=== PATIENT | female | born 1970 | race Caucasian/White ===

== ENCOUNTER 2018-02-03 09:45 | Emergency (ER) | payer OTHER ==
[~2018-02-03] VITALS: Ht 172.7 cm; Wt 64.4 kg
--- NOTE | 2018-02-03 10:50 | ED PSYCHIATRIC COMPLAINT ---
See Addendum History of Present Illness General Chief Complaint: Psychiatric Related Complaint Stated Complaint: S/P FALL HX MS AND ETOH HEAD INJURY Source: patient, old records, friend Exam Limitations: clinical condition, intoxication Vital Signs & Intake/Output Vital Signs & Intake/Output Vital Signs Date Time Temp Pulse Resp B/P B/P Pulse O2 O2 Flow FiO2 Mean Ox Delivery Rate 02/03 2027 99.1 87 18 133/72 02/03 2010 99.1 87 18 133/72 100 Room Air 02/03 1711 98.3 96 20 135/84 100 Room Air 02/03 1413 Room Air 02/03 0949 98.6 82 18 136/87 98 Room Air Allergies Coded Allergies: No Known Allergies (04/12/17) Reconcile Medications Cholecalciferol (Vitamin D3) (Vitamin D) (Unknown Strength) CAPSULE (Unknown Dose) PO DAILY SUPPLEMENT (Reported) Fentanyl 25 MCG/HOUR PATCH.TD72 1 PAT TOP Q3D PAIN (Reported) Ferrous Sulfate (Slow Release Iron) (Unknown Strength) TABLET.ER (Unknown Dose ) PO BID SUPPLEMENT (Reported) Imipramine Pamoate 75 MG CAPSULE 1 TAB PO QHS MS-BLADDER/BOWEL (Reported) Turon Carbonate (Turon Carbonate ER) 450 MG TABLET.ER 1 TAB PO BID MENTAL HEALTH (Reported) Lubiprostone (Amitiza) 8 MCG CAPSULE 1 CAP PO BID GI (Reported) Methylphenidate HCl (Methylphenidate ER) 20 MG TABLET.ER 1 TAB PO QAM ADHD ( Reported) Methylphenidate HCl 20 MG TABLET 1 TAB PO 1600 ADHD (Reported) Oxycodone HCl 5 MG TABLET 1 TAB PO TID PAIN (Reported) Pantoprazole Sodium 40 MG TABLET.DR 1 TAB PO DAILY GI (Reported) Quetiapine Fumarate 50 MG TABLET 1 TAB PO BID PRN MENTAL HEALTH (Reported) Quetiapine Fumarate (Seroquel XR) 300 MG TAB.ER.24H 1 TAB PO QPM MENTAL HEALTH /SLEEP (Reported) Ranitidine (Ranitidine HCl) 150 MG TABLET 1 TAB PO BID GI (Reported) Rituximab (Rituxan) (Unknown Strength) VIAL (Unknown Dose) IV AD MS (Reported ) Solifenacin Succinate (Vesicare) 10 MG TABLET 1 TAB PO QAM BLADDER (Reported) Triage Note: 47 YO FEMALE TO TRIAGE WITH FRIEND. PT HX OF MS AND ETOH USE. PT ARRIVES INTOXICATED, PT WALKED INTO WAITING AREA WITH FRIEND AND SAT DOWN ON FLOOR, PT DID NOT FALL, PT ASSISTED INTO WHEELCHAIR BY 2 STAFF MEMEBRS. PT NTOED WITH LARGE HEMATOMA TO L SIDE OF FOREHEAD, PER PT AND FRIENED, PT HAS BEEN FALLING FREQUENTLY D/T THE MS AND THE ALCOHOL USE. PT YELLING "F THIS I UST WANT TO , TODAY, PLEASE JUST KILL ME" PT ALERT, STRONG SMELL OF ETOH NOTED. PER FIREND, PT HIT HER HEAD ON THE COFFEE TABLE LAST PM, NO LOC. Triage Nurses Notes Reviewed? yes Onset: Last week Duration: day(s):, continues in ED, getting worse Timing: recent history Severity: severe Associated Symptoms: anxiety, impaired concentration, suicidal ideation LMP (ages 10-50): unknown : No Patient currently breastfeeds: No HPI: Over the last day prior to admission patient is had increasing depression alcohol abuse and expressing suicidality without a plan. 1 day prior to admission patient was drunk lost her balance and struck the left side of her face on a coffee table without loss of consciousness. There is no fever chills nausea vomiting diarrhea abdominal pain chest pain shortness breath headache dysuria bleeding homicidal ideation hallucination. (Wilberto Parham MD) Past History Travel History Traveled to [place] past 21 day No Medical History Any Pertinent Medical History? 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 No (Wilberto Parham MD) Review of Systems Review of Systems Constitutional: Reports: no symptoms. EENTM: Reports: no symptoms. Respiratory: Reports: no symptoms. Cardiovascular: Reports: no symptoms. GI: Reports: no symptoms. Genitourinary: Reports: no symptoms. Musculoskeletal: Reports: no symptoms. Skin: Reports: see HPI. Neurological/Psychological: Reports: see HPI, anxiety, confusion, depressed. Hematologic/Endocrine: Reports: no symptoms. Immunologic/Allergic: Reports: no symptoms. All Other Systems: Reviewed and Negative (Wilberto Parham MD) Physical Exam Physical Exam General Appearance: well developed/nourished, alert, awake, anxious, moderate distress Head: contusions, ecchymosis Eyes: Bilateral: normal appearance, PERRL, EOMI. Ears, Nose, Throat: normal pharynx, normal ENT inspection, hearing grossly normal Neck: normal inspection, supple, full range of motion Respiratory: normal breath sounds, chest non-tender, no respiratory distress, quiet respiration, lungs clear Cardiovascular: regular rate/rhythm, normal peripheral pulses, norml femoral pulses equa Gastrointestinal: normal bowel sounds, soft, non-tender, no organomegaly Extremities: normal range of motion, no ligament instability Neurological/Psychiatric: no motor/sensory deficits, awake, agitated, alert, anxious, crm coordinator II-XII nml as tested, depressed affect Appearance/Memory/Insight: disheveled, impaired insight Behavoir/Eye Contact/Speech: belligerent, compulsive, increased rate of speech Thoughts/Hallucinations: no apparent hallucination Skin: intact, normal color, warm/dry SAD PERSONS SAD PERSONS Response Value Age <19 or >45 years? yes 1 Depression/Hopelessness? yes 2 Previous Attempts/Psych Care yes 1 Excessive Ethanol/Drug Use? yes 1 Rational Thinking Loss? yes 2 Single//? yes 1 Social Support? has support 0 Total 8 SAD PERSONS Done? yes (Dione CASTILLO,Wilberto) Progress Differential Diagnosis: drug intoxication, drug overdose, drug withdrawal, electrolyte abnormality, hypoglycemia Plan of Care: Orders Procedure Date/time Status Regular Diet 02/03 L Active Pathway - chart 02/03 2122 Active CIWA 02/03 2122 Active CIWA 02/03 202 Active Continuous Observation Monitor 02/03 1825 Active Add-on Test (ER Only) 02/03 1704 Active Continuous Observation Monitor 02/03 1425 Active LITHIUM 02/03 1111 Complete Continuous Observation Monitor 02/03 1029 Active URINE 02/03 1029 Complete URINE DRUG SCREEN FOR ER ONLY 02/03 1029 Complete ETHANOL 02/03 1029 Complete COMPREHENSIVE METABOLIC PANEL 02/03 1029 Complete CBC WITHOUT DIFFERENTIAL 02/03 1029 Complete ED CRISIS PSYCH CONSULT 02/03 1029 Active Current Medications Sig/Sean Start time Last Medication Dose Stop Time Status Admin Quetiapine Fumarate 50 MG DAILY 02/04 0900 UNVr (SEROquel) Lorazepam 2 MG ONCE ONE 02/03 2130 UNVr (Ativan) 02/03 2131 Lorazepam 2 MG Q2P PRN 02/03 2130 UNVr (Ativan) Lorazepam 1 MG Q2P PRN 02/03 2130 UNVr (Ativan) Oxycodone HCl 5 MG TID 02/03 2100 AC 02/03 (Roxicodone) 2025 Quetiapine Fumarate 300 MG QPM 02/03 2100 UNVr 02/03 (Seroquel) 175 Turon Carbonate 450 MG BID 02/03 174 UNVr 02/03 (Eskalith Cr) 175 Fentanyl Citrate 25 MCG Q72H 02/03 161 UNVr 02/03 (Duragesic) 174 Quetiapine Fumarate 50 MG Q12P PRN 02/03 161 AC (SEROquel) Imipramine HCl 75 MG DAILY 02/03 160 UNVr 02/03 (Tofranil 25 MG 1710 Tablet) Famotidine 20 MG DAILY 02/03 1608 UNVr 02/03 (Pepcid) 1710 Lubiprostone 8 MCG DAILY 02/03 1607 UNVr 02/03 (Amitiza) 1709 Methylphenidate HCl 20 MG DAILY 02/03 1607 UNVr 02/03 (Ritalin) 1746 Oxybutynin Chloride 10 MG DAILY 02/03 1607 UNVr 02/03 (Ditropan) 1709 Nicotine 21 MG DAILY 02/03 1556 UNVr 02/03 (Nicoderm) 1709 Laboratory Tests 02/03/18 1111: Anion Gap 13, Estimated GFR > 60, BUN/Creatinine Ratio 13.3, Glucose 106 H, Calcium 9.2, Total Bilirubin 0.5, AST 24, ALT 22, Alkaline Phosphatase 84, Total Protein 6.9, Albumin 4.2, Globulin 2.7, Albumin/Globulin Ratio 1.6, CBC w Diff NO MAN DIFF REQ, RBC 4.59, MCV 92.5, MCH 30.8, MCHC 33.3, RDW 15.0 H, MPV 6.4 L, Gran % 67.1, Lymphocytes % 23.8, Monocytes % 7.1, Eosinophils % 1.5, Basophils % 0.5, Absolute Granulocytes 4.8, Absolute Lymphocytes 1.7, Absolute Monocytes 0.5, Absolute Eosinophils 0.1, Absolute Basophils 0, Turon 0.3 L, Serum Alcohol 230.0 02/03/18 0925: Urine Opiates Screen < 100, Methadone Screen 42, Barbiturate Screen < 60, Ur Phencyclidine Scrn < 6.00, Amphetamines Screen < 100, U Benzodiazepines Scrn < 85, Urine Cocaine Screen < 50, Urine Cannabis Screen < 5.00, Urine Test NEGATIVE Diagnostic Imaging: Viewed by Me: CT Scan. Discussed w/RAD: CT Scan. Radiology Impression: There is asymmetric subcutaneous swelling over the left zygomatic arch. No acute facial fracture. No acute intracranial hemorrhage. Hand-Off Endorsed To: Roddy CASTILLO,Arcenio Dawn Endorsed Time: 1899 Pending: consult (Wilberto Parham MD) Departure Departure Disposition: STILL A PATIENT Condition: Stable Clinical Impression Primary Impression: Depression with suicidal ideation Secondary Impressions: Alcohol intoxication delirium, Contusion, cheek Referrals: Viri Bryan MD (PCP/Family) Departure Forms: Customer Survey General Discharge Information (Wilberto Parham MD) Departure Comments 02/03/18, 21:00... pt placed on PEC by psychiatrist... ciwa score elevated... will cover with ativan, follow ciwa, crises to evaluate in AM. pt to be signed out to dr. parham, 02/04/18, 7am. (Roddy CASTILLO,Arcenio Dawn)
[2018-02-03 11:19] LABS: ABSOLUTE BASOPHIL COUNT 0 /CUMM (0.0-0.2); ABSOLUTE EOSINOPHIL COUNT 0.1 /CUMM (0.0-0.7); ABSOLUTE GRANULOCYTE CT 4.8 /CUMM (1.4-6.5); ABSOLUTE LYMPH COUNT 1.7 /CUMM (1.2-3.4); ABSOLUTE MONOCYTE COUNT 0.5 /CUMM (0.10-0.60); BASOPHIL % 0.5 % (0.0-2.0); EOSINOPHIL % 1.5 % (0-5); GRANULOCYTE % 67.1 % (42.2-75.2); HEMATOCRIT 42.5 % (37-47); MEAN CORPUSCULAR HGB 30.8 PG (27.0-31.0); MEAN CORPUSCULAR HGB CONC 33.3 G/DL (33.0-37.0); MEAN CORPUSCULAR VOLUME 92.5 FL (81.0-99.0); MEAN PLATELET VOLUME 6.4 FL (7.4-10.4); PLATELET COUNT 404 /CUMM (130-400); RED BLOOD CELL CT 4.59 /CUMM (4.20-5.40); WHITE BLOOD CELL COUNT 7.2 /CUMM (4.8-10.8)
--- NOTE | 2018-02-03 11:30 | CT SCAN REPORT ---
EXAMINATION: CT HEAD AND FACE. CLINICAL INFORMATION: Ecchymosis of the left zygoma status post fall. COMPARISON: Brain MRI 11/28/2017. TECHNIQUE: Screed Operator images were obtained. CT acquisition of the head and face was performed without intravenous administration of contrast. Data was reformatted into multiplanar images at the acquisition workstation. DLP: 1359.24 mGy-cm. FINDINGS: There is asymmetric subcutaneous soft tissue swelling over the zygomatic arch. No evidence of an acute facial fracture. Specifically the nasal bones, zygomatic arches, and pterygoid processes are intact. The mandible is intact and the temporomandibular joints are symmetric. Globes are symmetric. There is no retrobulbar mass or hematoma. Lamina papyracea and orbital floors are intact. The right maxillary sinus is nearly completely opacified. The remainder of the paranasal sinuses are well aerated. Major paranasal sinus drainage pathways are patent. The nasal septum deviates the left and there is a leftward projecting nasal septal spur the contacts the medial surface of left inferior nasal turbinate. There is no acute intracranial hemorrhage or abnormal extra-axial collection. No intracranial mass effect or midline shift. Lateral and third ventricles are normal. No hydrocephalus. A few scattered nonspecific foci of hypoattenuation are visualized within the periventricular white matter which coincide with chronic changes of multiple sclerosis better demonstrated on the brain MRI from 11/28/2017. Parr-white matter differentiation is otherwise grossly preserved and there is no evidence of acute territorial infarct. There is no mastoid or middle ear effusion. IMPRESSION: There is asymmetric subcutaneous swelling over the left zygomatic arch. No acute facial fracture. No acute intracranial hemorrhage.
[2018-02-03] MEDS ORDERED: AMITIZA8 MC1 PO (16:12)
[2018-02-03] MEDS ORDERED: LITHIUM CARBON450 M1 PO (16:12)
[2018-02-03] MEDS ORDERED: METHYLPHENIDATE20 M7 PO (16:13)
[2018-02-03] MEDS ORDERED: FENTANYL1 EAC2 TOP (16:13)
[2018-02-03] MEDS ORDERED: METHYLPHENIDATE20 M4 PO (16:13)
[2018-02-03] MEDS ORDERED: VESICARE10 MG PO (16:14)
[2018-02-03] MEDS ORDERED: IMIPRAMINE PAMO75 MG PO (16:15)
[2018-02-03] MEDS ORDERED: RITUXAN10 MG/1 ML IV (16:15)
[2018-02-03] MEDS ORDERED: SEROQUEL XR300 M1 PO (16:16)
[2018-02-03] MEDS ORDERED: QUETIAPINE FUMA50 M1 PO (16:16)
[2018-02-03] MEDS ORDERED: PANTOPRAZOLE SO40 M1 PO (16:16)
[2018-02-03] MEDS ORDERED: OXYCODONE HCL5 M1 PO (16:16)
[2018-02-03] MEDS ORDERED: RANITIDINE HCL150 MG PO (16:16)
[2018-02-03] MEDS ORDERED: SLOW RELEASE I142 MG PO (16:18)
[2018-02-03] MEDS ORDERED: VITAMIN D2000 UNIT PO (16:18)
[2018-02-03 17:28] LABS: LITHIUM 0.3 mmol/L (0.6-1.2)
--- NOTE | 2018-02-03 22:08 | ED PSYCH CRISIS CONSULTATION ---
Crisis Consult Basic Assessment Date of Consult: 02/03/18 Responsible Person/Accompanied By: self Insurance Authorization: Insurance #1: Insurance name: [employer] HMO Phone number: Policy number: [id number] Group number: [id number] Authorization number: ED Provider: Patient's ED Provider: Wilberto Parham MD Primary Care Physician: Patient's PCP: Viri Bryan MD PCP's Current Psychiatrist: [facility] [employer] BOAT CAPTAIN Chief Complaint: Psychiatric Related Complaint Patient's Quote: "I was intoxicated and fell." Present Illness: The patient is a 47 year old female brought in by a friend (Jameel Beaver) due to intoxication and a fall while home. Her BAL upon arrival was 230 and her toxicology screen was negative. Upon arrival to the ED the patient made statements that she wanted to and please just kill me. During this assessment the patients BAL was 000. The patient presents alert, oriented and cooperative with pressured speech. The patient is requesting discharge home to follow up with existing treatment at [facility] 02/06/18. The patient denies SI, HI, AH and VH. The pt reports she does not remember making any SI statements when arriving in the ED. The patient reports at times she states she wishes she never came out of a lithium induced coma that occurred in 2013. The patient denies any past suicide attempts and denies past psychiatric hospitalizations. The patient stated she has a history of making statements about not wanting to live related to her MS. The patient reports she has a history of bipolar disorder and takes her lithium as prescribed. The patient stated she had gastric bypass in 1999 and her absorption has to be closely monitored. The patient reports she is also prescribed Ritalin and Seroquel. The patient denies problems with concentration and sleep. The patient reports she eats small amounts due to her gastric bypass. 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 C-SSRS completed and placed in pt's chart. The patient initially stated she was sober for 10 years until she drank heavily 2 weeks ago and drank heavily yesterday again. The patient then stated she is in alcohol withdrawal and with further questioning the patient admitted that she has been drinking heavily for at least a couple of weeks. The pt denies any hx of seizures. The pt in 2004 and lives alone in senior/disabled housing. The pt reports she ahs supportive friends and is connected to treatment. The pt reports she attends AA and has a sponsor. This functional tester typewriters met with the pt's friend Jameel Beaver who stated he is not aware of any current or past attempts by pt to harm herself. Mr. Beaver stated the pt will at times state she wishes she was not alive. The patients presentation and history discussed by phone with doctor eKisha. Due to patients multiple risk factors and her request to leave the patient is placed on a PEC. Pt's withdrawal will be monitored following [facility] protocol. Patient's Address: [address] [place] [address] Other Phone Number: Who Do You Live With? Patient/Self Family/Informants Interviewed: Friend Jameel Beaver Allergies - Coded Allergies: No Known Allergies (04/12/17) Current Medications - Scheduled Medications Cholecalciferol (Vitamin D3) (Vitamin D) (Unknown Strength) CAPSULE (Unknown Dose) PO DAILY SUPPLEMENT (Reported) Entered as Reported by Shi Vallejo on 02/03/18 1618 Fentanyl 25 MCG/HOUR PATCH.TD72 1 PAT TOP Q3D PAIN #10 (Reported) Entered as Reported by Shi Vallejo on 02/03/18 1613 Ferrous Sulfate (Slow Release Iron) (Unknown Strength) TABLET.ER (Unknown Dose ) PO BID SUPPLEMENT (Reported) Entered as Reported by Shi Vallejo on 02/03/18 1618 Imipramine Pamoate 75 MG CAPSULE 1 TAB PO QHS MS-BLADDER/BOWEL #30 (Reported) Entered as Reported by Shi Vallejo on 02/03/18 1615 Rumsey Carbonate (Rumsey Carbonate ER) 450 MG TABLET.ER 1 TAB PO BID MENTAL HEALTH #60 (Reported) Entered as Reported by Shi Vallejo on 02/03/18 1612 Lubiprostone (Amitiza) 8 MCG CAPSULE 1 CAP PO BID GI #60 (Reported) Entered as Reported by Shi Vallejo on 02/03/18 1612 Methylphenidate HCl (Methylphenidate ER) 20 MG TABLET.ER 1 TAB PO QAM ADHD #30 (Reported) Entered as Reported by Shi Vallejo on 02/03/18 1613 Methylphenidate HCl 20 MG TABLET 1 TAB PO 1600 ADHD #30 (Reported) Entered as Reported by Shi Vallejo on 02/03/18 1613 Oxycodone HCl 5 MG TABLET 1 TAB PO TID PAIN #90 (Reported) Entered as Reported by Shi Vallejo on 02/03/18 1616 Pantoprazole Sodium 40 MG TABLET.DR 1 TAB PO DAILY GI #30 (Reported) Entered as Reported by Shi Vallejo on 02/03/18 1616 Quetiapine Fumarate (Seroquel XR) 300 MG TAB.ER.24H 1 TAB PO QPM MENTAL HEALTH /SLEEP #30 (Reported) Entered as Reported by hSi Vallejo on 02/03/18 1616 Ranitidine (Ranitidine HCl) 150 MG TABLET 1 TAB PO BID GI #60 (Reported) Entered as Reported by Shi Vallejo on 02/03/18 1616 Rituximab (Rituxan) (Unknown Strength) VIAL (Unknown Dose) IV AD MS (Reported ) Entered as Reported by Shi Vallejo on 02/03/18 1615 Solifenacin Succinate (Vesicare) 10 MG TABLET 1 TAB PO QAM BLADDER #30 ( Reported) Entered as Reported by Shi Vallejo on 02/03/18 1614 Scheduled PRN Medications Quetiapine Fumarate 50 MG TABLET 1 TAB PO BID PRN MENTAL HEALTH #60 (Reported ) Entered as Reported by Shi Vallejo on 02/03/18 1616 Laboratory Results: Laboratory Tests 02/03/18 1111: Anion Gap 13, Estimated GFR > 60, BUN/Creatinine Ratio 13.3, Glucose 106 H, Calcium 9.2, Total Bilirubin 0.5, AST 24, ALT 22, Alkaline Phosphatase 84, Total Protein 6.9, Albumin 4.2, Globulin 2.7, Albumin/Globulin Ratio 1.6, CBC w Diff NO MAN DIFF REQ, RBC 4.59, MCV 92.5, MCH 30.8, MCHC 33.3, RDW 15.0 H, MPV 6.4 L, Gran % 67.1, Lymphocytes % 23.8, Monocytes % 7.1, Eosinophils % 1.5, Basophils % 0.5, Absolute Granulocytes 4.8, Absolute Lymphocytes 1.7, Absolute Monocytes 0.5, Absolute Eosinophils 0.1, Absolute Basophils 0, Rumsey 0.3 L, Serum Alcohol 230.0 02/03/18 0925: Urine Opiates Screen < 100, Methadone Screen 42, Barbiturate Screen < 60, Ur Phencyclidine Scrn < 6.00, Amphetamines Screen < 100, U Benzodiazepines Scrn < 85, Urine Cocaine Screen < 50, Urine Cannabis Screen < 5.00, Urine Test NEGATIVE (Alexei Obregon) Past History Past Medical History Neurological: multiple sclerosis EENT: NONE Cardiovascular: NONE Respiratory: NONE Gastrointestinal: NONE Hepatic: NONE Renal: NONE Musculoskeletal: NONE Psychiatric: NONE Endocrine: NONE Blood Disorders: NONE Cancer(s): NONE 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 Past Surgical History Surgical History: non-contributory Psychosocial History Strengths/Capabilities: able to articulate needs, connected to treatment, stable housing, supportive friends Physical Limitations (Interventions): related to MS Psychiatric Treatment History Psych Treatment Psychiatric Treatment Yes Inpatient Treatment Yes Outpatient Treatment Yes Location of Treatment [facility] Reason for Treatment Bipolar Dates of Treatment pt reports a long hx Response to Treatment inconsistent Diagnosis by History: Bipolar disorder, Alcohol Use Disorder Substance Use/Abuse History Drug Use/Abuse Substances Used/Abused Yes Substance Used/Abused Alcohol First Use pt unsure Last Used 02/03/18 How much used/taken pt reports "heavy drinking" How often daily For how long long hx with periods of sobriety Route of use ingest Substance Abuse Treatment Substance Abuse Treatment Past Substance Abuse [place] Yes Inpatient Treatment No Outpatient Treatment Yes Location of Treatment [facility], AA Reason for Treatment alcohol use Dates of Treatment pt reports long hx Response to Treatment inconsistent (Alexei Obregon) Current Mental Status Mental Status Orientation: Person, Place, Situation Affect: Anxious Speech: Pressured Neuro-vegetative: WNL Appearance Appearance- Dress/Hygiene: bruising to face Behaviors Thought Process: WNL Thought Content: WNL Memory: WNL Insight: Fair SI/HI Risk Assessment Past Suicidal Ideation/Attempts Yes Current Suicidal Ideation/Att Yes Past Homicidal Ideation/Att: No Current Homicidal Ideation/Attempts No Degree of Intent: Self Destructive/No Danger To: Self Gravely Disabled: Lack of Insight, Poor Judgment Risk Factors: access to lethal means, chronic/serious med cond., high anxiety/ distress, substance abuse, poor impulse control, lack of outcome concern, lives alone Lethality Ratin PTSD Checklist PTSD Done? patient declined ED Management Sitter: Yes Restraints: No (Alexei Obregon) DSM5/PS Stressors/Medical Prob Diagnosis' (DSM 5, Stressors, Medical): F31.9 Unspecified Bipolar and Related Disorder F10.20 Alcohol Use Disorder, Severe Current GAF: 30 (Alexei Obregon) Departure Disposition Psych Medical Clearance Date: 02/03/18 Medically Cleared at: 1800 Time Started: 1829 Time Ended: 1929 Psychiatrist Consulted: Dr. Valdes Date Disposition Established: 02/03/18 Time Disposition Established: 2129 Plan for Disposition - Modality: Ongoing assessment in ED Rationale for Disposition: Pt requesting discharge but has multiple risk factors. Presentation discussed with Dr. Valdes. Pt placed on a PEC with the plan for Dr. Valdes to meet face to face with the pt on 02/04/18 to further determine disposition. Type of IP Admission: PEC Referrals Viri Bryan MD (PCP/Family) (Alexei Obregon) Addendum Addendum SW met with the patient for reassessment this AM. The patient presented alert, oriented , calm and cooperative. The patient states that she is feeling "fine," and is upset with herself for being in this situation. She has a long history of mental health and substance abuse issues and is currently in treatment with [facility]. She struggled with alcohol abuse through most of her 20's and 30's and was sober for 10 years, before relapsing 1 month ago. She states that her neighbor, with whom she has become close with, found out that he has a mass in his chest. She states that between him receiving that information and finding out that she needs to have her teeth pulled (secondary to Rumsey), she relapsed on alcohol. She denies any current SI / HI / AH / VH. She reports one previous suicide attempt, in her 30's that she allegedly made while intoxicated and states she does not remember. She is on Disability (MS) and resides in her own apartment. She states that she has supportive friends (Jameel), attends AA and has a sponsor. She states that she would like to stop drinking and that [facility] offered her IOP. She reports that she wanted to come to the ED to "get checked out for withdrawals," and now she would like to go home and start IOP. She states that her friends Jameel, offered to stay with her and she feels safe to be discharged. She plans to attend her "[place]," AA meeting in [place] tomorrow and her previously scheduled appointments at [facility] on TuesdayFebruary 06 and February 09. She verbalized understanding that she can call 911 or 211, if she feels unsafe over the weekend. She was also provided with the number for Crisis if she has any additional questions or needs other resources. DOLORES spoke to Jameel ([phone]), who brought her to the ED and he stated that his goal was to "get her sober." He states that he was never concerned about her hurting herself or anyone else. He believes that she is safe for discharge and will pick her up if she is discharged home. Jameel states that he thinks she should return to her outpatient and increase services at this time. The patient was personally seen by Dr. Valdes and she does not find the patient to be an acute risk to self or others at this time. Dr. Valdes recommends that the patient be discharged home and to follow up with appointment on 02/06/2018 to increase services to IOP at [facility]. Jameel was present at the time of discharge and states that he will be staying with the patient throughout the rest of the weekend and will call 911 or bring her to the ED, if has any concerns. (Manuel SOTO,Graciela)
[2018-02-04 08:30] VITALS: BP 129/74
--- NOTE | 2018-02-04 10:42 | ED PSYCHIATRIST/APRN CONSULT ---
Psychiatrist/DISTRICT SUPERVISOR ED Consult Assessment and Plan: 47 year old woman with a history of bipolar disorder, severe alcohol use disorder, brought in by friend due to intoxication. In the ER she stated that she wanted to . She was seen once BAL was 0. She was somewhat pressured and wanted to go home, denying any active SI,HI, AH and Vh, and not recalling suicidal statements. She had a number of risk factors including diagnosis of MS, multiple medical problems, and severe alcohol use. Most significantly, she was in active withdrawal, still pressured and had been having increased falls due to alcohol use, with poor insight regarding the extent of her drug use and impact on mental and physical health, yesterday evening. Due to her multiple risk factors, recent intoxication, opted to have her re-evaluated rather than discharged to her friend last night. She was pressured and talkative, but had no other major mental status abnormalities. She listed a number of future oriented coping skills and support, namely her AA sponsor who she would call if withdrawal sx worsened, her friend who was present at bedside who would stay with her, going to an AA meeting tmr, therapist on Tuesday and . She denied having any past suicide attempts and denied wanting to , though admitted that her vanity, her supports and her cat are the main reasons she lives with her multiple medical conditions. She stated that her cat needs her, her sponsor has been supportive in the past and she is the main support system for her elderly next door neighbor. We discussed risk reduction with avoiding alcohol use, not keeping extra pills in the house, maintaining extra pills for the month in her lock box which she has, and returning to the ER if her withdrawal sx worsen. She declined medical detox consideration, and declined discussion about rehab. At this time, her main risk factor for self harm is impulsivity and poor decision making in context of alcohol use rather than an acute depressive/manic/ psychotic episode. She has a number of chronic risk factors which she is managing with her multiple support systems. She has a history of being high functioning and continues to do her best to maintain her functioning. She is not severely depressed, psychotic, or manic. She would benefit from a detox, or a rehab program, or consideration for brief voluntary admission (though this would be secondary to her getting sober), all of which she has the capacity to decline , and she has declined. She no longer meets criteria for an involuntary hold and is considered stable for discharge.
== END 2018-02-04 10:10 ==
LOC: ERH 09:45
PROVIDERS: Emergency Medicine
DX: S00.83XA Contusion of other part of head, initial encounter (principal); F32.9 Major depressive disorder, single episode, unspecified; R45.851 Suicidal ideations; F10.121 Alcohol abuse with intoxication delirium; W22.03XA Walked into furniture, initial encounter; Y92.9 Unspecified place or not applicable; Y93.9 Activity, unspecified
CPT/HCPCS: 80307; 81025; G0463; G0480